=== PATIENT | male | born 1975 | race Caucasian/White ===

== ENCOUNTER 2017-02-12 16:15 | Emergency (ER) | payer SELFPAY ==
--- NOTE | 2017-02-12 17:06 | ED Physician Documentation ---
Hand Injury - HISTORIAN Historian: patient - HPI Stated Complaint: laceration Chief Complaint: Hand Injury Additional Information: kitchen knife 1.5 cm lac dorsum lt hand 2nd digit at PIP joint Onset: yesterday (1700) Where: home Severity: mild, moderate Duration: persistent since Context: laceration Location of Injury: L hand Further Comments: yes (hand fairly dirty on exam-allergic to betadine-causes skin rash and hives per kpt.) - ROS CONST: no problems GI/: denies: problems urinating NEURO: none CVS/RESP: none MS/SKIN/LYMPH: none - PAST HX Past History: Rt handed Immunizations: UTD (2 yrs ago) Allergies/Adverse Reactions: Allergies Allergy/AdvReac Type Severity Reaction Status Date / Time TILAPIA Allergy Uncoded 02/12/17 16:31 Home Medications: Ambulatory Orders Medication Instructions Recorded Cephalexin [Keflex] 500 mg PO QID #40 capsule 02/12/17 - SOCIAL HX Smoking History: greater than 1 pack/day Alcohol Use: heavy Drug Use: marijuana - FAMILY HX Family History: no significant history - VITAL SIGNS Vital Signs: Vital Signs Temp Pulse Resp BP Pulse Ox 98.4 F 93 H 16 125/82 93 02/12/17 16:31 02/12/17 16:31 02/12/17 16:31 02/12/17 16:31 02/12/17 16:31 - REVIEWED ASSESSMENTS Nursing Assessment Reviewed: Yes Vitals Reviewed: Yes Procedures Wound Location: upper extremity Wound's Depth, Shape: superficial, stellate Wound Explored: contaminated (occurred 1700hrs yest hand dirty on exam) Betadine Prep?: No (pt allergic used hebaclens) Wound Debrided: irrigated well instilled aliya sterile dressing instructions on keeping clean and dressing change Sterile Dressing Applied?: Yes Hand Injury Physical Exam - Exam General Appearance: mild distress Hand: other (as afore described) Wrist: normal inspection Neuro: sensation nml, motor nml. No: digital nerve deficit, decreased fine touch Vascular: no vascular compromise Tendons: tendon function nml Forearm/Elbow/Arm: uninjured above wrist Head/ENT: nml inspection Neck/Back: nml inspection Resp/CVS: chest non-tender, breath sounds nml, heart sounds nml, no resp. distress Abdomen: non-tender Discharge Clincal Impression: laceration dorsum lt hand old-occ 1730 y Prescriptions: Cephalexin [Keflex] 500 mg PO QID #40 capsule Referrals: Primary Doctor,No [Primary Care Provider] - 2 Days Home Medications: Ambulatory Orders Cephalexin [Keflex] 500 mg PO QID #40 capsule 02/12/17 Comments: to keep very clean and inst on recurrent cleansing Disposition: 01 HOME, SELF-CARE Decision to Admit: NO Decision Time: 17:13
[2017-02-12 17:52] VITALS: BP 120/74
== END 2017-02-12 17:35 | disposition home or self-care (01) ==
LOC: ED 16:15
DX: S61.412A Laceration without foreign body of left hand, initial encounter (principal); X58.XXXA Exposure to other specified factors, initial encounter; Y93.9 Activity, unspecified; Y99.9 Unspecified external cause status
CPT/HCPCS: 99283

== ENCOUNTER 2019-01-20 12:11 | Emergency (ER) | payer SELFPAY ==
--- NOTE | 2019-01-20 12:22 | ED Physician Documentation ---
Abdominal Pain - HISTORIAN Historian: patient - HPI Stated Complaint: abd pain Chief Complaint: Abdominal Pain Onset: hours (3) Duration: constant Timing: worse Context: denies: out of country travel, bad food, recent trauma Severity: moderate Quality: sharp Associated Symptoms: none Exacerbated by: supine, movements Relieved by: remaining still (bending at waist ) Further Comments: yes (states pain started at 0900. No injury. No fever. He felt he had gas so he did take OTC meds for gas. He had a normal bowel movement this am. He has pain that is "all over" and he feels less pain with sitting and prasad ding at the waist. He has no medical concerns other than the pain. He did not take any other OTC meds for pain. He has no other complaints. No urinary concerns) - ROS CONST: no problems - SOCIAL HX Smoking History: cigarettes Alcohol Use: heavy Drug Use: none - FAMILY HX Family History: none - PAST HX Past History: none Ischemic Bowel Risk Factors: none Other History: none Surgeries/Procedures: none Immunizations: UTD Allergies/Adverse Reactions: Allergies Allergy/AdvReac Type Severity Reaction Status Date / Time TILAPIA Allergy Uncoded 01/20/19 12:17 - VITAL SIGNS Vital Signs: Vital Signs Temp Pulse Resp BP Pulse Ox 97.8 F 70 20 129/78 96 01/20/19 13:48 01/20/19 13:48 01/20/19 13:48 01/20/19 13:48 01/20/19 13:48 - REVIEWED ASSESSMENTS Nursing Assessment Reviewed: Yes Vitals Reviewed: Yes Progress - Progress Progress: 1320: Mild improvement in pain. He states now 01/22. Discussed findings with pt and plan. He is requesting transfer to [facility] DG [id number]: Discussed case with Dr Rivera [facility] - he will accept transfer ED Results Lab/Radiology - Lab Results Lab Results: Lab Results 01/20/19 01/20/19 12:42 12:25 WBC 11.30 K/ul K/ul (4.00-12.00) RBC 5.25 M/ul H M/ul (3.90-5.20) Hgb 17.9 g/dL g/dL (12.0-18.0) Hct 52.8 % % (37.0-53.0) MCV 101.0 fl H fl (80.0-100.0) MCH 34.1 pg H pg (28.0-34.0) MCHC 33.9 g/dL g/dL (30.0-36.0) RDW 12.6 % % (11.3-14.3) Plt Count 181 K/mm3 K/mm3 (130-400) Neut % (Auto) 78.9 % % (39.0-79.0) Lymph % (Auto) 13.0 % L % (16.0-50.0) [place] % (Auto) 6.1 % % (0.0-11.0) Eos % (Auto) 1.4 % % (0.0-6.8) Baso % (Auto) 0.6 % % (0.0-1.5) Neut # (Auto) 8.9 # k/uL H # k/uL (1.4-7.7) Lymph # (Auto) 1.5 # k/uL # k/uL (0.6-4.0) [place] # (Auto) 0.7 # k/uL # k/uL (0.0-0.9) Eos # (Auto) 0.2 # k/uL # k/uL (0.0-0.6) Baso # (Auto) 0.1 # k/uL # k/uL (0.0-0.5) Sodium 140 mmol/L mmol/L (137-145) Potassium 4.3 mmol/L mmol/L (3.5-5.1) Chloride 105 mmol/L mmol/L (98-107) Carbon Dioxide 28 mmol/L mmol/L (22-30) BUN 8 mg/dL L mg/dL (9-20) Creatinine 0.63 mg/dL L mg/dL (0.66-1.25) Estimated Creat Clear 130 Est GFR ( Amer) > 60 (60 - ) Est GFR (Non-Af Amer) > 60 (60 - ) Glucose 99 mg/dL mg/dL (74-106) Calcium 8.8 mg/dL mg/dL (8.4-10.2) Total Bilirubin 0.4 mg/dL mg/dL (0.2-1.3) AST 40 U/L U/L (15-46) ALT 27 U/L U/L (13-69) Alkaline Phosphatase 88 U/L U/L (38-126) Total Protein 7.4 g/dL g/dL (6.3-8.2) Albumin 4.4 g/dL g/dL (3.5-5.0) Lipase 792 U/L H U/L (23-300) - Orders Orders: ED Orders Category Date Time Status IV Started NOW Care 01/20/19 12:[address] ABD & PELVIS W/ CON Stat Exams 01/20/19 Completed CBC/PLATELET/DIFF Stat Lab 01/20/19 12:42 Completed CMP Stat Lab 01/20/19 12:25 Completed LIPASE Stat Lab 01/20/19 12:25 Completed UA W/MICRO IF INDICATED Routine Lab 01/20/19 12:14 Ordered 0.9 % Sodium Chloride [Normal Saline] 1,000 ml Med 01/20/19 12:24 Discontinued IV NOW Ketorolac Tromethamine [Toradol] Med 01/20/19 12:24 Discontinued 30 mg IV NOW ONE fentaNYL CITRATE/PF [Sublimaze] Med 01/20/19 13:00 Discontinued 50 mcg IVP NOW ONE fentaNYL CITRATE/PF [Sublimaze] Med 01/20/19 13:40 Discontinued 50 mcg IVP NOW ONE Abdominal Pain Physical Exam - Physical Exam General Appearance: moderate distress EENT: eye inspection normal, no signs of dehydration NECK: normal inspection RESPIRATORY: no resp distress, chest non-tender, breath sounds normal CVS: reg rate & rhythm, heart sounds normal, equal pulses ABDOMEN: soft, tenderness (diffuse pain ) BACK: normal inspection, no CVA tenderness SKIN: warm/dry, normal color EXTREMITIES: non-tender, normal range of motion, no evidence of injury, no edema NEURO: oriented X3 Vital Signs: Vital Signs Temp Pulse Resp BP Pulse Ox 97.8 F 70 20 129/78 96 01/20/19 13:48 01/20/19 13:48 01/20/19 13:48 01/20/19 13:48 01/20/19 13:48 Discharge Clincal Impression: Appendicitis Qualifiers: Appendicitis type: unspecified Qualified Code(s): K37 - Unspecified appendicitis Referrals: Primary Doctor,No [Primary Care Provider] - 2 Days Condition: Fair Disposition: 02 XFER SHT-TRM HOSP Decision to Admit: NO Date of Decison to Admit: 01/20/19 Decision Time: 13:29
[2019-01-20] MEDS: 0.9 % SODIUM CHLORIDE 1,000 ML IV ONE (12:29)
[2019-01-20] MEDS: KETOROLAC TROMETHAMINE 30 MG/1ML VIAL IV ONE (12:30)
[2019-01-20 12:43] LABS: BASOPHILS % 0.6 % (0.0-1.5); NEUTROPHILS # 8.9 # k/uL (1.4-7.7)
[2019-01-20 12:57] LABS: eGFR (Non-African) > 60
[2019-01-20] MEDS: fentaNYL CITRATE/PF 100 MCG/2 ML INJ. IVP ONE ×2 (13:05→13:46)
--- NOTE | 2019-01-20 13:37 | Diagnostic Imaging Report ---
CHLOÉ TORRES [facility] [address] [facility] [address]. [address] Report Submission Date: Jan 20, 2019 1:17:33 PM CDT Patient Study Name: AKI CARRASQUILLO Date: Jan 20, 2019 12:42:56 PM CDT Modality Type: CT\SR Gender: M Description: CT AB/PELVIS W : 75 Institution: [facility] Physician: CHLOÉ TORRES CT abdomen and pelvis with contrast History: Abdominal pain Technique: Helically acquired images were obtained from the hemidiaphragms to the pelvic floor following IV contrast. Findings: The liver, gallbladder, spleen, adrenal glands, pancreas, kidneys and stomach are unremarkable. The abdominal aorta normal in caliber. There is mild aortoiliac atherosclerosis. There is no free fluid in the pelvis. The bladder, seminal vesicles prostate gland are unremarkable. In the expected location of the appendix, there is an abnormal pocket of fluid. This pocket of fluid tracks superiorly from the pericecal region along the anterior margin of the inferior vena cava to the level of the duodenal sweep. These findings are concerning for acute and ruptured appendicitis. Otherwise, small and large bowel loops are normal in caliber. Lung bases are clear. No osseous abnormalities are noted. There is moderate posterior disc bulging at L3/4 and to a greater degree at L4/5. Impression: The appendix itself is not discretely visualized. However, in the expected location of the appendix, there is a small pocket of fluid. This fluid tracks superiorly along the anterior margin of the inferior vena cava to the level of the duodenal sweep. These findings would be concerning for acute/ruptured appendicitis and surgical consultation would be indicated. Disc bulging posteriorly at L3/4 and to a greater degree at L4/5. Consider follow-up nonemergent MRI. These findings were discussed with Chloé Torres on January 20, 2019 at 1315 central standard time Electronically signed on Jan 20, 2019 1:17:33 PM CDT by: Sylvia ZULETA
[2019-01-20 13:56] VITALS: BP 129/78
== END 2019-01-20 13:51 | disposition short-term general hospital (02) ==
LOC: ED 12:11
DX: K37 Unspecified appendicitis (principal)
CPT/HCPCS: 74177; 80053; 83690; 85025; 96361; 96374; 96375; 96376; 99283; 99284; J1885; J3010; J7030; Q9967; S1016